=== PATIENT | male | born 1995 | race Caucasian/White ===

== ENCOUNTER 2017-10-16 23:35 | Emergency (ER) | payer OTHER ==
[2017-10-16 23:40] VITALS: RESP 18
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
[2017-10-17 01:08] VITALS: BP 111/71; PULSE 72; TEMP 98.1; O2SAT 95
== END 2017-10-17 01:09 | disposition home or self-care (01) ==
DX: S19.9XXA Unspecified injury of neck, initial encounter (principal); X58.XXXA Exposure to other specified factors, initial encounter

== ENCOUNTER 2018-06-06 13:23 | Emergency (ER) | payer OTHER ==
--- NOTE | 2018-06-06 13:55 | EDPHY ---
HPI/HX/ROS/PE/MDM Narrative: CHIEF COMPLAINT: Psych evaluation HISTORY OF PRESENT ILLNESS: The patient is a 22 y/o male requesting a psych evaluation after having thoughts of people plotting against him. When he is alone he states "there are parts of him that he shouldn't believe anything that people are saying and that people are plotting against him". He states that "everything is a lie and that he should be alone". He denies visual or auditory hallucinations. In addition to these thoughts he states he becomes "so mad that he wants to hurt himself like running his head into a wall". He denies homicidal ideations. He states that he has an appointment scheduled with psychiatrist or therapist in 2 weeks. However, he is stating that he does not want to go through two more weeks dealing with his thoughts. He states he is "confident" that he can fix this but is "scared" that he won't be able to deal with it for the next two weeks. He states there is an "imbalance" in his head and he believes he needs medications to correct this imbalance. Due to these thoughts he went to see his therapist at [facility] today, who advised that the patient present to the emergency department. Denies tobacco or illicit drug use. He occasionally drinks alcohol. Patient denies suicidal ideation. He denies homicidal ideation. No fever, chills, chest pain, shortness of breath, palpitations, vomiting, diarrhea, urinary complaints, headache, lightheadedness. REVIEW OF SYSTEMS: Aside from elements discussed in the HPI, a comprehensive 10-system review of systems was reviewed and is negative. PAST MEDICAL HISTORY: Testicular torsion surgery, wisdom teeth extraction SOCIAL HISTORY: Student at , lives in [place], originally from [place] VITAL SIGNS: Reviewed by me GENERAL: Well-developed, well-nourished, resting comfortably in no respiratory distress. HEENT: Atraumatic. Eyes: Dilated pupils, no icterus, no injection. Mouth: moist mucous membranes. No erythema or lesions. Neck: supple with no adenopathy. LUNGS: Clear to auscultation bilaterally, no wheezes, rhonchi or rales. CARDIAC: Regular rate and rhythm, no rubs, murmurs or gallops. ABDOMEN: Soft, nontender, nondistended, bowel sounds normal. BACK: No CVA tenderness. EXTREMITIES: No trauma. No edema. Range of motion is normal throughout. NEURO: Alert and oriented, grossly nonfocal. SKIN: Warm and dry, no rash. PSYCHIATRIC: Rambling speech. Normal mentation, no agitation. Portions of this note were transcribed by a medical case manager. I personally performed a history, physical exam, medical decision making, and confirmed accuracy of information the transcribed note. (Maria Graham) ED Course: The patient is a 22 y/o male presenting with having thoughts of people plotting against him. He denies homicidal ideations, visual or auditory hallucinations. On exam he has rambling speech and is anxious. This patient will need to have a psych evaluation; labs ordered. Patient does report he has a family member who is been diagnosed with bipolar disorder. During my conversation the patient appears quite knowledgeable regarding mental health disorders. He is quite anxious to begin medications as soon as possible. 1600: Patient care turned over to Dr. Samuels at 1600, pending remainder of the patient's medical clearance and mental health evaluation. (Maria Graham) Patient has been evaluated by mental health and they feel that a trial of anti anxiety medication in the ED to see how the patient does to try to keep his anxiety away while he is awaiting his appointment with psychiatrist in about a week. Further discussion with patient and his dad and mental health worker and the plan is to give the patient 1 extra Xanax to take home with him tonight so we will have 1 if necessary. Short-term prescription for Xanax. (Marv Samuels) MDM: Differential diagnoses for the patient's symptom complex was considered including but not limited to electrolyte abnormalities, bipolar disorder, schizophrenia, paranoia, drug or alcohol abuse, drug or alcohol withdrawal. ( Maria Graham) - Data Points Laboratory Results: Laboratory Results 06/06/18 15:32 06/06/18 15:32 06/06/18 06/06/18 06/06/18 15:32 15:32 15:20 WBC 8.43 10^3/uL 10^3/uL (3.80-9.50) RBC 5.96 10^6/uL 10^6/uL (4.40-6.38) Hgb 17.5 g/dL g/dL (13.7-17.5) Hct 50.1 % % (40.0-51.0) MCV 84.1 fL fL (81.5-99.8) MCH 29.4 pg pg (27.9-34.1) MCHC 34.9 g/dL g/dL (32.4-36.7) RDW 12.2 % % (11.5-15.2) Plt Count 306 10^3/uL 10^3/uL (150-400) MPV 9.5 fL fL (8.7-11.7) Neut % (Auto) 70.3 % % (39.3-74.2) Lymph % (Auto) 17.4 % % (15.0-45.0) [place] % (Auto) 10.2 % % (4.5-13.0) Eos % (Auto) 1.3 % % (0.6-7.6) Baso % (Auto) 0.4 % % (0.3-1.7) Nucleat RBC Rel Count 0.0 % % (0.0-0.2) Absolute Neuts (auto) 5.93 10^3/uL 10^3/uL (1.70-6.50) Absolute Lymphs (auto) 1.47 10^3/uL 10^3/uL (1.00-3.00) Absolute Monos (auto) 0.86 10^3/uL H 10^3/uL (0.30-0.80) Absolute Eos (auto) 0.11 10^3/uL 10^3/uL (0.03-0.40) Absolute Basos (auto) 0.03 10^3/uL 10^3/uL (0.02-0.10) Absolute Nucleated RBC 0.00 10^3/uL 10^3/uL (0-0.01) Immature Gran % 0.4 % % (0.0-1.1) Immature Gran # 0.03 10^3/uL 10^3/uL (0.00-0.10) Sodium 139 mEq/L mEq/L (135-145) Potassium 4.7 mEq/L mEq/L (3.3-5.0) Chloride 99 mEq/L mEq/L (97-110) Carbon Dioxide 25 mEq/l mEq/l (22-31) Anion Gap 15 mEq/L mEq/L (8-16) BUN 15 mg/dL mg/dL (7-23) Creatinine 0.9 mg/dL mg/dL (0.7-1.3) Estimated GFR > 60 Glucose 81 mg/dL mg/dL (70-100) Calcium 10.4 mg/dL mg/dL (8.5-10.4) TSH 1.730 uIU/mL uIU/mL (0.465-4.680) Urine Opiates Screen NEGATIVE (NEGATIVE) Urine Barbiturates NEGATIVE (NEGATIVE) Ur Phencyclidine Scrn NEGATIVE (NEGATIVE) Ur Amphetamine Screen NEGATIVE (NEGATIVE) U Benzodiazepines Scrn NEGATIVE (NEGATIVE) Urine Cocaine Screen NEGATIVE (NEGATIVE) U Marijuana (THC) Screen NON-NEGATIVE H (NEGATIVE) Ethyl Alcohol < 10 mg/dL mg/dL (0-10) Medications Given: Discontinued Medications Alprazolam (Xanax) 0.5 mg PO EDNOW ONE Stop: 06/06/18 19:20 Last Admin: 06/06/18 19:33 Dose: 0.5 mg General Time Seen by Provider: 06/06/18 13:54 Initial Vital Signs: Initial Vital Signs Temperature (C) 37 C 06/06/18 13:25 Heart Rate 66 06/06/18 13:25 Respiratory Rate 14 06/06/18 13:25 Blood Pressure 120/88 H 06/06/18 13:25 O2 Sat (%) 95 06/06/18 13:25 O2 Delivery Mode Room Air Allergies/Adverse Reactions: No Known Allergies Allergy (Verified 06/06/18 13:28) Home Medications: Medication Instructions Recorded ALPRAZolam [Xanax 0.5 MG (*)] 0.5 mg PO TID PRN #12 tab 06/06/18 Departure - Departure Disposition: Home, Routine, Self-Care Clinical Impression: Anxiety Condition: Good Instructions: Anxiety (ED) Additional Instructions: Xanax 1 pill every 8 hr as needed for anxiety Return for thoughts of harming herself or others Keep follow-up appointment with psychiatrist at [facility] Referrals: NONE *PRIMARY CARE P,. [Primary Care Provider] - As per Instructions [facility] [Outside] - As per Instructions Prescriptions: ALPRAZolam [Xanax 0.5 MG (*)] 0.5 mg PO TID PRN #12 tab PRN Reason: Anxiety Report Scribed for: Maria Graham Report Scribed by: Maura Khoury Date of Report: 06/06/18 Time of Report: 13:55
[2018-06-06 15:52] LABS: PLATELET COUNT 306 10^3/uL (150-400)
[2018-06-06] MEDS ORDERED: ALPRAZolam 0.25 MG TAB PO ONE ×2 (19:19→20:58)
--- NOTE | 2018-06-06 20:26 | ASMTTLCEVL ---
TLC Evaluation - Basic Information Evaluation Start Date and 06/06/2018 06:30 PM Time Hospital Status Answers: Voluntary Patient statement Notes: "I just want to feel less anxious and worried all the time. I just want to feel happy again." Narrative Notes: This 22 y/o , single, male college senior presents voluntarily to the ED complaining of extreme anxiety, ruminating thoughts and feelilgs of sadness and worry that he is going to mess everything up - particularly his relationship with his girlfriend. Pt reports increased anxiety over the past 6 months and increasing over the past month and couple of days. He went to [facility] to get an appointment with a psychiatrist and was given one for 10 days from now. He did meet with a counselor this morning and was encouraged to see a psychopharmacologist as well as a therapist which he plans to do. THis afternoon, he felt like he couldn't wait for 10 days and brought himself to the ED. He denies suicidal, parasuicidal or homicidal ideation, urges or behaviors - but has felt like throwing something or banging his head due to his frustration with how he is feeling. He denies auditory/visual hallucinations currently or in the past. He does report OCD on and off since middle school. he had some therapy for this, but like his anxiety he wants to "Conquer this on his own" He is now more willilng to seek help. Diagnosis History Notes: Pt has never been formally diagnosed but does report OCD and anxiety and probable depression. Prior suicide attempts Notes: None Prior hospitalizations Notes: None Treatment Responses Notes: Has benefitted slightly from 2 rounds of short term therapy. History of violence Notes: None Medications (name, dosage, route, freq uency) Notes: None Allergies/Reaction Notes: None Sleep Notes: Difficulty falling asleep Appetite Notes: Normal Medical/Surgical history Notes: No significant medical or surgical history Substance use history (frequency, intensity, his tory, duration) Notes: Pt reports infrequent use of marijuana - maybe once a week and alcohol - 1 -2 drinks pr week. Pt denies any other substance use Family composition Notes: Parents are alive and well and live in [place], [place] Father is present at the ED and is supportive. He will spend the night at the pt's house and will remove a gun from the house and take it home to [place] tomorrow. Need for family Answers: Yes participation in patient's care Family psychiatric/substance abuse history Notes: Mother suffers from anxiety. Developmental history Notes: Pt grew up in [place] - an only chid with parents. He did well in school - played sports - baseball, basketball and skiing. Had friends. He is currently a Senior at . 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 He is very supportive of treatment for his son. Patient's strengths Answers: Athletic (Please select at least TWO strengths): Good Friend to Others Honest Intelligent Motivated for Treatment Responsible/Dependable Supportive/Compassionate Supportive Family Willingness TLC Evaluation - Mental Status Exam Appearance: Answers: Appropriate Clean Eye Contact: Answers: Intermittent Affect: Answers: Appropriate Anxious Sad Behavior: Answers: Appropriate Cooperative Talkative Speech: Answers: Relevant Logical Thought Process: Answers: Organized Oriented Alert Goal Oriented Depression Answers: Sad Mood Signs/Symptoms: Withdrawn Worthlessness Anxiety Signs/Symptoms Answers: Generalized Anxiety Obsessive/Compulsive Thoughts/Behavior Hallucinations: Answers: None Pt reported to have Answers: No suicidal/self-injuring ideation/behavior? Pt reported to be making Answers: No suicidal/self-injuring threats? Pt reported to have Answers: No aggression/assault ideation/behavior? Pt reported to be making Answers: No aggression/assault threats? Ideation/behavior is Answers: No chronic? Patient has a specific Answers: No plan? History of Answers: No aggressive/assaultive ideation, behavior, or threats? TLC Evaluation - Suicide/Homicide Risk Suicide Risk Factors: Answers: Access to Firearms Anxiety/Panic, Severe Single Homicide/violence risk Answers: None factors: Current Suicidal Answers: No Ideation? Current Suicidal Ideation Answers: No in the Past Month? Suicide Internal Answers: Absence of Psychosis Protective Factors: Frustration Tolerance Catrachito with Stress Suicide External Answers: Responsibility to Pets Protective Factors: Social Support Other Notes: Parents Ranking of patient's Answers: Low suicidal risk: Ranking of patient's Answers: Low homicidal risk: TLC Evaluation - Wrap-up BDI Total Score: 14 BDI Question #2 Score: 0 BDI Question #9 Score: 0 AXIS I Diagnosis (include DSM-V and ICD-10 codes), must also be entered in [employer], which is the source of truth. Notes: 300.02 (F41.1) Generalized Anxiety Disorder Evaluation End Date and 06/06/2018 08:25 PM Time (HH:TUYET): Date Signed: 06/06/2018 08:25 PM Electronically Signed By:Eboni Lira
--- NOTE | 2018-06-06 20:31 | ASMTLCPROG ---
Notes Note: Notes: Met with this pt and his father separately and together. Pt does not meet criteria for in-pt hospitalization, and though offered a voluntary admission. pt prefers to return home to be with his dog. He will be given a prescription for an anti-anxiety medication and commits to attending his scheduled appt at [facility] in 10 days. Father will also look for a private Psychiatrist in the meantime. father will drive pt home and stay the night. Fathr will remove firearm from the house. Date Signed: 06/06/2018 08:30 PM Electronically Signed By:Eboni Lira
--- NOTE | 2018-06-06 20:52 | ASMTTCLDSP ---
TLC Discharge Disposition Disposition: Answers: Discharge If Answers: Yes DISCHARGED: Patient/family given suicide hotline info & SAMHSA brochure? Disposition Notes: Notes: Pt will see a therapist at [facility] tomorrow and has an appt with a psychopharmacologist in 10 days. His father will be spending the night with him and removing a firearm from the house. He has been given a perscription for an anti-anxiety medication by the FED MD Marv Samuels. Pt is encouraged to return to the ED if his symptoms escalate or he begins to expereince suicidal/[homicidal ideation. Discharge Concerns/Recommendations: Notes: In consultation with Dr. Marv Samuels this voluntary patient does not currently meet the 27-65 criteria requiring in-pt psychiatric hospitalization as he does not appear to be a danger to himself or others and is not gravely disabled. A voluntary hospitalization was offered to the pt and his father but pt preferred to return home and made a comittment to return to the ED if symptoms increase. Was patient given the Answers: Not applicable Inpatient Behavioral Health Prohibited Belongings List while in the ED? Date Signed: 06/06/2018 08:51 PM Electronically Signed By:Eboni Lira
[2018-06-06 21:08] VITALS: BP 133/70
== END 2018-06-06 21:09 | disposition home or self-care (01) ==
DX: F41.9 Anxiety disorder, unspecified (principal); Z81.8 Family history of other mental and behavioral disorders
CPT/HCPCS: 80305; G0480